=== PATIENT | male | born 1990 | race Caucasian/White ===

== ENCOUNTER 2021-05-19 05:00 | Emergency (ER) | payer BC ==
[2021-05-19] MEDS ORDERED: CLINDAMYCIN HC150 MG PO (05:45)
[2021-05-19] MEDS ORDERED: NAPROSYN500 MG PO (05:45)
== END 2021-05-19 06:15 | disposition home or self-care (01) ==
LOC: ER1 05:00
DX: K02.9 Dental caries, unspecified (principal); K05.10 Chronic gingivitis, plaque induced; Z88.0 Allergy status to penicillin; F17.200 Nicotine dependence, unspecified, uncomplicated
CPT/HCPCS: 99282